=== PATIENT | male | born 1980 | race American Indian/Alaskan Native ===

== ENCOUNTER 2018-09-21 21:56 | Emergency (ER) | payer OTHER ==
--- NOTE | 2018-09-21 22:19 | Event Note ---
ED Screening Note Date of service: 09/21/18 Time: 22:15 ED Screening Note: This is a 38 y.o. M. that presents to the ER with low back pain. 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 Diagnosed with DDD 2014 Reports radiating pain to LLE. Denies change in urinary or bowl pattern. This initial assessment/diagnostic orders/clinical plan/treatment(s) is/are subject to change based on patients health status, clinical progression and re-assessment by fellow clinical providers in the ED. Further treatment and workup at subsequent clinical providers discretion. Patient/guardian urged not to elope from the ED as their condition may be serious if not clinically assessed and managed. Initial orders include: XR L-spine
--- NOTE | 2018-09-21 23:20 | XRay Report ---
LUMBAR SPINE 4 VIEWS INDICATION: low back pain. COMPARISON: No relevant prior imaging study available. FINDINGS: No acute fracture or subluxation is seen. There is minimal retrolisthesis of L4 on L5. There is mild to moderate disc space narrowing at the lumbosacral junction. Lower lumbar facet arthropathy is noted . The SI joints are within normal limits. IMPRESSION: 1. No acute findings. Signer Name: Ruebn Brito MD Signed: 09/21/2018 11:15 PM Workstation Name: [id number]
[2018-09-22] MEDS ORDERED: TORADOL IM ONE (02:26)
[2018-09-22] MEDS ORDERED: DELTASONE PO ONE (02:26)
--- NOTE | 2018-09-22 03:02 | Emergency Department Report ---
ED Back Pain/Injury HPI - General Chief Complaint: Back Pain/Injury Stated Complaint: BACK INJURY Time Seen by Provider: 09/21/18 22:15 Source: patient Limitations: No Limitations - History of Present Illness Initial Comments: Patient is a 38-year-old -[place] male with a history of chronic low back pain and presents to the ED with complaint of acute exacerbation of his chronic low back pain after heavy lifting at work 5 days ago. Patient states that the pain has been persistent, constant and severe but nonradiating. Patient denies urinary frequency and urgency, hematuria, urinary or bowel incontinence, saddle paresthesia, numbness and tingling or weakness of lower extremities bilaterally, abdominal pain, fall, or traumatic injury, chest pain or shortness of breath. Patient states that the pain is worse with any movement. MD Complaint: back pain, back injury -: Sudden Similar Symptoms Previously: Yes Place: work Radiation: none Severity: severe Severity scale (0 -10): 8 Quality: sharp, aching Consistency: constant Improves With: none Worsens With: movement, sitting upright, walking Context: while lifting, turning/twisting, bending Associated Symptoms: denies other symptoms, difficulty walking. denies: confusion, weakness, chest pain, numbness, cough, difficulty urinating, diaphoresis, incontinence, fever/chills, constipation, headaches, abdominal pain, loss of appetite, malaise, nausea/vomiting, rash, seizure, shortness of breath, syncope, other - Related Data Previous Rx's Medication Instructions Recorded Last Taken Type Baclofen 20 mg PO Q8H PRN #24 tablet 09/22/18 Unknown Rx Ibuprofen [Motrin] 800 mg PO Q8HR PRN #24 tablet 09/22/18 Unknown Rx predniSONE [Deltasone] 60 mg PO QDAY #15 tab 09/22/18 Unknown Rx traMADol [Ultram 50 MG tab] 50 mg PO Q6HR PRN 3 Days #15 tablet 09/22/18 Unknown Rx Allergies Allergy/AdvReac Type Severity Reaction Status Date / Time No Known Allergies Allergy Verified 09/21/18 21:59 ED Review of Systems ROS: Stated complaint: BACK INJURY Other details as noted in HPI Constitutional: denies: chills, fever Eyes: denies: eye pain, eye discharge, vision change ENT: denies: ear pain, throat pain Respiratory: denies: cough, shortness of breath, wheezing Cardiovascular: denies: chest pain, palpitations Endocrine: no symptoms reported Gastrointestinal: denies: abdominal pain, nausea, diarrhea Genitourinary: denies: urgency, dysuria Musculoskeletal: back pain, arthralgia. denies: joint swelling Skin: denies: rash, lesions Neurological: denies: headache, weakness, paresthesias Psychiatric: denies: anxiety, depression Hematological/Lymphatic: denies: easy bleeding, easy bruising ED Past Medical Hx - Past Medical History Previous Medical History?: Yes Hx Arthritis: Yes (DJD 2014) Additional medical history: back injury - Surgical History Past Surgical History?: No - Social History Smoking Status: Current Every Day Smoker Substance Use Type: None - Medications Home Medications: Home Medications Medication Instructions Recorded Confirmed Last Taken Type Baclofen 20 mg PO Q8H PRN #24 tablet 09/22/18 Unknown Rx Ibuprofen [Motrin] 800 mg PO Q8HR PRN #24 tablet 09/22/18 Unknown Rx predniSONE [Deltasone] 60 mg PO QDAY #15 tab 09/22/18 Unknown Rx traMADol [Ultram 50 MG tab] 50 mg PO Q6HR PRN 3 Days #15 tablet 09/22/18 Unknown Rx ED Physical Exam - General Limitations: No Limitations General appearance: alert, in no apparent distress - Head Head exam: Present: atraumatic, normocephalic, normal inspection - Eye Eye exam: Present: normal appearance, PERRL, EOMI Pupils: Present: normal accommodation - ENT ENT exam: Present: normal exam, normal orophraynx, mucous membranes moist, TM's normal bilaterally, normal external ear exam - Neck Neck exam: Present: normal inspection, full ROM. Absent: tenderness, lymphadenopathy - Respiratory Respiratory exam: Present: normal lung sounds bilaterally. Absent: respiratory distress, wheezes, rales, rhonchi, stridor, chest wall tenderness, accessory muscle use, decreased breath sounds - Cardiovascular Cardiovascular Exam: Present: regular rate, normal rhythm, normal heart sounds. Absent: systolic murmur, diastolic murmur, rubs, gallop - GI/Abdominal GI/Abdominal exam: Present: soft, normal bowel sounds. Absent: tenderness, guarding, rebound, hyperactive bowel sounds, organomegaly, mass - Rectal Rectal exam: Present: deferred - Extremities Exam Extremities exam: Present: normal inspection, full ROM, normal capillary refill - Back Exam Back exam: Present: normal inspection, tenderness (palpable lumbosacral paraspinal musculoskeletal tenderness), muscle spasm, paraspinal tenderness - Neurological Exam Neurological exam: Present: alert, oriented X3, CN II-XII intact, normal gait, reflexes normal - Psychiatric Psychiatric exam: Present: normal affect, normal mood - Skin Skin exam: Present: warm, dry, intact, normal color. Absent: rash ED Course Vital Signs 09/21/18 22:16 Temperature 98 F Pulse Rate 88 Respiratory 18 Rate Blood Pressure 149/86 O2 Sat by Pulse 99 Oximetry - Reevaluation(s) Reevaluation #1: 09/22/18 03:00 Patient is alert and oriented 3, and is in no acute distress with normal vital signs but in pain. Patient was treated for pain in the ED and L-spine x-ray shows no acute fractures or subluxation. There is however minimal retrolisthesis of L4 on L5. There is also mild to moderate disc space narrowing at the lumbosacral junction. Lower lumbar facet arthropathy is also noted that the SI joints are within normal limits. On reevaluation, patient's pain is moderately controlled and patient was discharged home on pain medications and muscle relaxants and advised to follow-up with his primary care physician in 5-7 days for reevaluation. Patient was advised to return to the ED immediately if symptoms get worse. ED Medical Decision Making - Radiology Data Radiology results: report reviewed, image reviewed L-spine x-ray shows no acute fractures or subluxation. There is however minimal retrolisthesis of L4 on L5. There is also mild to moderate disc space narrowing at the lumbosacral junction. Lower lumbar facet arthropathy is also noted that the SI joints are within normal limits. - Medical Decision Making Patient is alert and oriented 3, and is in no acute distress with normal vital signs but in pain. Patient was treated for pain in the ED and L-spine x-ray shows no acute fractures or subluxation. There is however minimal retrolisthesis of L4 on L5. There is also mild to moderate disc space narrowing at the lumbosacral junction. Lower lumbar facet arthropathy is also noted that the SI joints are within normal limits. On reevaluation, patient's pain is moderately controlled and patient was discharged home on pain medications and muscle relaxants and advised to follow-up with his primary care physician in 5-7 days for reevaluation. Patient was advised to return to the ED immediately if symptoms get worse - Differential Diagnosis Muscle spasm of back; Lumbar disc disease; Muscle strain Critical care attestation.: If time is entered above; I have spent that time in minutes in the direct care of this critically ill patient, excluding procedure time. ED Disposition Clinical Impression: Acute exacerbation of chronic low back pain, Spasm of muscle of lower back, Lumbar disc disease Disposition: TO HOME OR SELFCARE Is pt being admited?: No Does the pt Need Aspirin: No Condition: Stable Instructions: Muscle Spasm (ED), Muscle Strain (ED), Musculoskeletal Pain (ED), Chronic Back Pain (ED) Additional Instructions: Take medications with food, drink plenty of fluids and follow-up with your primary care physician in 5-7 days for reevaluation. Return to the ED immediately if symptoms get worse. Prescriptions: Baclofen 20 mg PO Q8H PRN #24 tablet PRN Reason: Spasms predniSONE [Deltasone] 60 mg PO QDAY #15 tab Ibuprofen [Motrin] 800 mg PO Q8HR PRN #24 tablet PRN Reason: Pain , Severe (7-10) traMADol [Ultram 50 MG tab] 50 mg PO Q6HR PRN 3 Days #15 tablet PRN Reason: Pain Referrals: [facility] [Outside] - 3-5 Days Forms: Work/School Release Form(ED) Time of Disposition: 03:03 Print Language: KAZAKH
[2018-09-22 03:37] VITALS: BP 135/80
== END 2018-09-22 03:37 | disposition home or self-care (01) ==
LOC: ED 21:56
DX: M62.831 Muscle spasm of calf (principal); M51.36 Other intervertebral disc degeneration, lumbar region; F17.200 Nicotine dependence, unspecified, uncomplicated
CPT/HCPCS: 72100; 96372; 99283; J1885; J7512